=== PATIENT | female | born 1975 | race Caucasian/White ===

== ENCOUNTER 2018-03-19 22:07 | Emergency (ER) | payer BC ==
--- NOTE | 2018-03-19 22:47 | EDM.PDOC ---
ED HPI GENERAL MEDICAL PROBLEM - General Chief Complaint: Abdominal Pain Time Seen by Provider: 03/19/18 22:45 - History of Present Illness INITIAL COMMENTS - FREE TEXT/NARRATIVE: 42-year-old female presents emergency room with abdominal pain. This pain started roughly 3 days ago however really became quite severe sometime last night or very early this morning. It is right sided. Occasionally radiates into her right flank and across her lower abdomen. The patient does not have prior history of kidney stones she had a problematic ovarian cyst when she was on fertility medication and this in a way reminds her of that. Patient has not had any nausea or vomiting no diarrhea no constipation. She denies fevers or chills. 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 (see below) Other Treatments DEDICATED OWNER OPERATOR: tylenol at 1900 Lower Pelvic Pain Score (Numeric/FACES): 8 - Related Data Allergies Allergy/AdvReac Type Severity Reaction Status Date / Time codeine Allergy Nausea Verified 03/19/18 22:28 sertraline [From Zoloft] Allergy Other Verified 03/19/18 22:28 Home Meds: Home Meds FLUoxetine [PROzac] 20 mg PO DAILY 03/19/18 [History] buPROPion [Wellbutrin] 150 mg PO DAILY 03/19/18 [History] traZODone HCl [Trazodone HCl] 25 mg PO ASDIRECTED 03/19/18 [History] Past Medical History Gastrointestinal History: Reports: Celiac Disease 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 (See Below) 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 DESIGN 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 History: ovarian cyst surgery Psychiatric History: Reports: Anxiety, Depression - Past Surgical History HEENT Surgical History: Reports: Oral Surgery GI Surgical History: Reports: Appendectomy Female Surgical History: Reports: Other (See Below) 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 Denies: Constipation, Diarrhea , Nausea, Vomiting : Reports: No Symptoms Musculoskeletal: Reports: No Symptoms Skin: Reports: No Symptoms Neurological: Reports: No Symptoms ED EXAM, GI/ABD - Physical Exam Exam: See Below Exam Limited By: No Limitations General Appearance: Alert, No Apparent Distress Head: Atraumatic, Normocephalic Neck: Normal Inspection, Supple, Non-Tender, Full Range of Motion. No: Lymphadenopathy (L), Lymphadenopathy (R) Respiratory/Chest: No Respiratory Distress, Lungs Clear, Normal Breath Sounds Cardiovascular: Regular Rate, Rhythm, No Edema, No Murmur GI/Abdominal Exam: Normal Bowel Sounds, Soft, Other (Right-sided pain with palpation worsened to some degree with palpation no rigidity or rebound noted no guarding) Back Exam: CVA Tenderness (R) (Mild). No: CVA Tenderness (L) Course - Vital Signs Last Recorded V/S: Last Vital Signs Temp 37.4 C 03/19/18 22:33 Pulse 73 03/19/18 22:33 Resp 20 03/19/18 22:33 BP 119/74 03/19/18 22:33 Pulse Ox 98 03/19/18 22:33 - Orders/Labs/Meds Orders: Active Orders 24 hr Category Date Time Status Abdomen Pelvis wo Cont [CT] Stat Exams 03/20/18 01:05 Taken Lactated Ringers [Ringers, Lactated] 1,000 ml Med 03/19/18 23:15 Active IV ASDIRECTED Medication Orders Lactated Ringer's (Ringers, Lactated) 1,000 mls @ 125 mls/hr IV ASDIRECTED SRINIVAS Last Admin: 03/19/18 23:20 Dose: 125 mls/hr Labs: Laboratory Tests 03/19/18 03/19/18 03/19/18 Range/Units 22:50 22:50 23:15 WBC 8.35 (3.98-10.04) K/mm3 RBC 4.48 (3.98-5.22) M/mm3 Hgb 13.2 (11.2-15.7) gm/L Hct 38.6 (34.1-44.9) % MCV 86.2 (79.4-94.8) fl MCH 29.5 (25.6-32.2) pg MCHC 34.2 (32.2-35.5) g/dl RDW Std Deviation 41.2 (36.4-46.3) fL Plt Count 304 (182-369) K/mm3 MPV 9.8 (9.4-12.3) fl Neutrophils % (Manual) 74 H (40-60) % Band Neutrophils % 0 (0-10) % Lymphocytes % (Manual) 21 (20-40) % Atypical Lymphs % 1 % Monocytes % (Manual) 4 (2-10) % Eosinophils % (Manual) 0 L (0.7-5.8) % Basophils % (Manual) 0 L (0.1-1.2) Platelet Estimate Adequate Plt Morphology Comment Normal RBC Morph Comment Normal Sodium (136-145) mEq/L Potassium (3.5-5.1) mEq/L Chloride (98-107) mEq/L Carbon Dioxide (21-32) mEq/L Anion Gap (5-15) BUN (7-18) mg/dL Creatinine (0.55-1.02) mg/dL Est Cr Clr Drug Dosing mL/min Estimated GFR (MDRD) (>60) mL/min BUN/Creatinine Ratio (14-18) Glucose (74-106) mg/dL Calcium (8.5-10.1) mg/dL Total Bilirubin (0.2-1.0) mg/dL AST (15-37) U/L ALT (14-59) U/L Alkaline Phosphatase (46-116) U/L Total Protein (6.4-8.2) g/dl Albumin (3.4-5.0) g/dl Globulin gm/dL Albumin/Globulin Ratio (1-2) Urine Color Yellow (Yellow) Urine Appearance Clear (Clear) Urine pH 5.5 (5.0-8.0) Ur Specific [place] > or = 1.030 (1.005-1.030) Urine Protein Negative (Negative) Urine Glucose (UA) Negative (Negative) Urine Ketones 3+ H (Negative) Urine Occult Blood Trace-lysed H (Negative) Urine Nitrite Negative (Negative) Urine Bilirubin Negative (Negative) Urine Urobilinogen 0.2 (0.2-1.0) Ur Leukocyte Esterase Negative (Negative) Urine RBC 0-5 (0-5) /hpf Urine WBC 0-5 (0-5) /hpf Ur Epithelial Cells 0-5 (0-5) /hpf Urine Bacteria Rare (FEW) /hpf Urine Mucus Not seen (FEW) /hpf Urine HCG, Qual Negative (NEGATIVE) 03/19/18 Range/Units 23:15 WBC (3.98-10.04) K/mm3 RBC (3.98-5.22) M/mm3 Hgb (11.2-15.7) gm/L Hct (34.1-44.9) % MCV (79.4-94.8) fl MCH (25.6-32.2) pg MCHC (32.2-35.5) g/dl RDW Std Deviation (36.4-46.3) fL Plt Count (182-369) K/mm3 MPV (9.4-12.3) fl Neutrophils % (Manual) (40-60) % Band Neutrophils % (0-10) % Lymphocytes % (Manual) (20-40) % Atypical Lymphs % % Monocytes % (Manual) (2-10) % Eosinophils % (Manual) (0.7-5.8) % Basophils % (Manual) (0.1-1.2) Platelet Estimate Plt Morphology Comment RBC Morph Comment Sodium 137 (136-145) mEq/L Potassium 3.2 L (3.5-5.1) mEq/L Chloride 102 (98-107) mEq/L Carbon Dioxide 24 (21-32) mEq/L Anion Gap 14.2 (5-15) BUN 13 (7-18) mg/dL Creatinine 0.9 (0.55-1.02) mg/dL Est Cr Clr Drug Dosing 74.77 mL/min Estimated GFR (MDRD) > 60 (>60) mL/min BUN/Creatinine Ratio 14.4 (14-18) Glucose 90 (74-106) mg/dL Calcium 8.5 (8.5-10.1) mg/dL Total Bilirubin 0.3 (0.2-1.0) mg/dL AST 16 (15-37) U/L ALT 18 (14-59) U/L Alkaline Phosphatase 62 (46-116) U/L Total Protein 7.2 (6.4-8.2) g/dl Albumin 3.9 (3.4-5.0) g/dl Globulin 3.3 gm/dL Albumin/Globulin Ratio 1.2 (1-2) Urine Color (Yellow) Urine Appearance (Clear) Urine pH (5.0-8.0) Ur Specific [place] (1.005-1.030) Urine Protein (Negative) Urine Glucose (UA) (Negative) Urine Ketones (Negative) Urine Occult Blood (Negative) Urine Nitrite (Negative) Urine Bilirubin (Negative) Urine Urobilinogen (0.2-1.0) Ur Leukocyte Esterase (Negative) Urine RBC (0-5) /hpf Urine WBC (0-5) /hpf Ur Epithelial Cells (0-5) /hpf Urine Bacteria (FEW) /hpf Urine Mucus (FEW) /hpf Urine HCG, Qual (NEGATIVE) Meds: Medications Generic Name Dose Route Start Last Admin Trade Name Freq PRN Reason Stop Dose Admin Lactated Ringer's 1,000 mls @ 125 mls/hr 03/19/18 23:15 03/19/18 23:20 Ringers, Lactated IV 125 mls/hr ASDIRECTED SRINIVAS Administration Discontinued Medications Generic Name Dose Route Start Last Admin Trade Name Freq PRN Reason Stop Dose Admin Fentanyl 50 mcg 03/20/18 02:18 03/20/18 02:24 Sublimaze IVPUSH 03/20/18 02:19 50 mcg ONETIME ONE Administration - Re-Assessments/Exams Free Text/Narrative Re-Assessment/Exam: 03/20/18 01:07 Patient is doing a little better. Discussed the workup thus far which is basically unrevealing. Discussed the pros and cons of CAT scanning will proceed with a CAT scan at this point as kidney stone is high in the list of possibilities and the patient [place] out of town. 03/20/18 02:30 CT evaluation does not show a kidney stone she's got a fairly large right ovarian cyst 4.5 x 4 cm recommending pelvic ultrasound. At this point the patient will be discharged and will follow-up with the women's clinic here. Dr. Garza on-call will discharge with some hydrocodone. Departure - Departure Time of Disposition: 02:31 Disposition: Home, Self-Care 01 Clinical Impression: Unspecified ovarian cyst, right side - Discharge Information Referrals: Zainab Obrien PA-C [Primary Care Provider] - Cyrus Garza MD [Physician] - Forms: ED Department Discharge Additional Instructions: Return to emergency room with any questions problems or worsening symptoms. Follow-up at the women's clinic, Dr. Garza this next week. Use the hydrocodone as needed for the pain the Tylenol or Motrin will not treat. If taking the hydrocodone on a regular basis be sure and take a stool softener as this medication can cause constipation. Do not drive or returning to work within 12 hours of taking hydrocodone. - My Orders Last 24 Hours: My Active Orders 03/19/18 23:15 Lactated Ringers [Ringers, Lactated] 1,000 ml IV ASDIRECTED 03/20/18 01:05 Abdomen Pelvis wo Cont [CT] Stat - Assessment/Plan Last 24 Hours: My Active Orders 03/19/18 23:15 Lactated Ringers [Ringers, Lactated] 1,000 ml IV ASDIRECTED 03/20/18 01:05 Abdomen Pelvis wo Cont [CT] Stat
[2018-03-19] MEDS ORDERED: Lactated Ringers 1,000 ML IV SCH (23:15)
[2018-03-20] MEDS ORDERED: fentaNYL 100 MCG/2 ML SDV IVPUSH ONE (02:18)
--- NOTE | 2018-03-20 06:38 | CT ---
CT abdomen and pelvis Technique: Multiple axial sections were obtained from above the top of the diaphragm inferiorly through the pubic symphysis. Intravenous and oral contrast was not utilized. Study has been performed as a ureteral stone protocol. Comparison: No prior abdominal imaging. Findings: Visualized lung bases show nothing acute. Noncontrast appearance of the liver and spleen appears within normal limits. Adrenal glands show no nodule. Pancreas shows no discrete abnormality. Gallbladder contains no calcified gallstones. Previous appendectomy appears to be present. Aorta shows no aneurysm. No retroperitoneal adenopathy or mesenteric abnormalities are seen. 4.3 cm cystic region is seen within the right ovary. No other pelvic abnormality is seen. No free fluid or inflammatory change is seen. Mild increased stool is seen throughout the colon. Kidneys show no abnormal calcifications. No ureteral dilatation or ureteral stone is seen. Impression: 1. Cystic change within the right ovary measuring up to 4.3 cm. This is likely incidental but pelvic ultrasound could be obtained to confirm. 2. Slight increased stool is noted throughout the colon. 3. No renal calculi, ureteral dilatation or ureteral stone is seen. Diagnostic code #3 I agree with preliminary report from [facility], finalized on 03/20/18, 3:23 AM Central Time
== END 2018-03-20 02:41 | disposition home or self-care (01) ==
LOC: JD.ED 22:07
DX: N83.201 Unspecified ovarian cyst, right side (principal); Z90.49 Acquired absence of other specified parts of digestive tract; Z88.5 Allergy status to narcotic agent; Z88.8 Allergy status to other drugs, medicaments and biological substances; Z79.899 Other long term (current) drug therapy
CPT/HCPCS: 36415; 74176; 80053; 81001; 81025; 85007; 85027; 96361; 96374; 99284; J3010; J7120; 99283

== ENCOUNTER 2018-07-13 12:18 | Emergency (ER) | payer BC ==
[2018-07-13] MEDS ORDERED: Sodium Chloride 0.9% 1,000 ML IV ONE (13:29)
[2018-07-13] MEDS ORDERED: Ketorolac 30 MG/ML SDV IVPUSH ONE (13:31)
--- NOTE | 2018-07-13 13:51 | EDM.PDOC ---
ED HPI GENERAL MEDICAL PROBLEM - General Chief Complaint: Neurological Problem Stated Complaint: WEAKNESS/PIAN IN LIMBS Time Seen by Provider: 07/13/18 12:39 Source of Information: Reports: Patient History Limitations: Reports: No Limitations - History of Present Illness INITIAL COMMENTS - FREE TEXT/NARRATIVE: 42 yo F comes in today with for complaints of acute on chronic whole body weakness, burning/tingling and left leg "heaviness" and numbness. She states she was standing [place] [employer] today when all of a sudden she felt a "wave of heaviness and burning/tingling" in her entire body, castro the left leg. She also has some tingling to the face and fingers. She also c/o TAYLOR that "wraps around my head", 7/10 pain. She does have a h/o of migraines, but states this is not one as she had no aura, vomiting, or sensitivity to light like she normally would. She also c/o some neck pressure and pain, but this is mostly chronic as she was bucked off a horse at 17 yo. She was recently started on Gabapentin on Tuesday and is afraid these might be side effects. However, the Gabapentin has been helping with her "sharp shooting pain down my legs". At this point, she is just feeling upset because "I feel like I'm not in my own body". She does have h/o of being on Trazodone, Wellbutrin and Prozac. Her uncle does have a h/o MS with similar symptoms, but she had an MRI done last week that was normal. She has an appointment with a neurologist in [place] mid August. She will be seeing a "general practitioner in [place]" tomorrow. PCP is Mary Carter NP. 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 Denies: Fever, Chills, Decreased Appetite HEENT: Reports: Glasses Respiratory: Reports: No Symptoms Cardiovascular: Reports: No Symptoms. Denies: Chest Pain, Dyspnea on Exertion, Palpitations Endocrine: Reports: No Symptoms GI/Abdominal: Reports: Nausea (earlier today, has now subsided). Denies: Abdominal Pain, Diarrhea, Vomiting : Reports: No Symptoms Skin: Reports: No Symptoms Neurological: Reports: Headache (09/20, "wraps around head"), Numbness (face, hands, legs L>R), Tingling (face, hands, legs L>R), Weakness (L leg). Denies: Confusion, Dizziness, Seizure, Trouble Speaking, Change in Speech Psychiatric: Reports: Anxiety Hematologic/Lymphatic: Reports: No Symptoms Immunologic: Reports: No Symptoms ED EXAM, NEURO - Physical Exam Exam: See Below Exam Limited By: No Limitations General Appearance: Alert, WD/WN, Anxious Eye Exam: Left Eye: Nystagmus (very mild), Bilateral Eye: EOMI, PERRL Ears: Normal External Exam, Hearing Grossly Normal Nose: Normal Inspection, Normal Mucosa, No Blood Throat/Mouth: Normal Inspection, Normal Lips, Normal Teeth, Normal Gums, Normal Oropharynx, Normal Voice, No Airway Compromise Head Exam: Atraumatic, Normocephalic Neck: Normal Inspection, Supple, Non-Tender, Full Range of Motion Respiratory/Chest: No Respiratory Distress, Lungs Clear, Normal Breath Sounds, No Accessory Muscle Use, Chest Non-Tender Cardiovascular: Normal Peripheral Pulses, Regular Rate, Rhythm, No Edema, No Gallop, No JVD, No Murmur, No Rub GI/Abdominal: Normal Bowel Sounds, Soft, Non-Tender, No Organomegaly, No Distention, No Abnormal Bruit, No Mass Neurological: Alert, CN II-XII Intact, No Motor/Sensory Deficits, Oriented x 3 Back Exam: Normal Inspection. No: Paraspinal Tenderness, Vertebral Tenderness Extremities: Normal Inspection, Normal Range of Motion, Non-Tender, No Pedal Edema, Normal Capillary Refill Psychiatric: Anxious Skin Exam: Warm, Dry, Intact, Normal Color, No Rash Course - Vital Signs Last Recorded V/S: Last Vital Signs Temp 99.0 F 07/13/18 12:29 Pulse 81 07/13/18 12:29 Resp 20 07/13/18 12:29 BP 126/83 07/13/18 12:29 Pulse Ox 99 07/13/18 12:29 - Orders/Labs/Meds Labs: Laboratory Tests 07/13/18 07/13/18 07/13/18 Range/Units 13:45 13:45 13:45 WBC 6.58 (3.98-10.04) K/mm3 RBC 4.72 (3.98-5.22) M/mm3 Hgb 13.9 (11.2-15.7) gm/L Hct 41.3 (34.1-44.9) % MCV 87.5 (79.4-94.8) fl MCH 29.4 (25.6-32.2) pg MCHC 33.7 (32.2-35.5) g/dl RDW Std Deviation 41.6 (36.4-46.3) fL Plt Count 323 (182-369) K/mm3 MPV 9.9 (9.4-12.3) fl Neut % (Auto) 71.7 H (34.0-71.1) % Lymph % (Auto) 15.8 L (19.3-51.7) % [place] % (Auto) 10.0 (4.7-12.5) % Eos % (Auto) 1.1 (0.7-5.8) Baso % (Auto) 0.9 (0.1-1.2) % Neut # (Auto) 4.72 (1.56-6.13) K/mm3 Lymph # (Auto) 1.04 L (1.18-3.74) K/mm3 [place] # (Auto) 0.66 H (0.24-0.36) K/mm3 Eos # (Auto) 0.07 (0.04-0.36) K/mm3 Baso # (Auto) 0.06 (0.01-0.08) K/mm3 Sodium 139 (136-145) mEq/L Potassium 3.6 (3.5-5.1) mEq/L Chloride 105 (98-107) mEq/L Carbon Dioxide 24 (21-32) mEq/L Anion Gap 13.6 (5-15) BUN 5 L (7-18) mg/dL Creatinine 1.1 H (0.55-1.02) mg/dL Est Cr Clr Drug Dosing 61.17 mL/min Estimated GFR (MDRD) 55 (>60) mL/min BUN/Creatinine Ratio 4.5 L (14-18) Glucose 130 H (74-106) mg/dL Calcium 8.7 (8.5-10.1) mg/dL Magnesium 2.2 (1.8-2.4) mg/dl Total Bilirubin 0.2 (0.2-1.0) mg/dL AST 16 (15-37) U/L ALT 22 (14-59) U/L Alkaline Phosphatase 66 (46-116) U/L Total Protein 7.2 (6.4-8.2) g/dl Albumin 3.5 (3.4-5.0) g/dl Globulin 3.7 gm/dL Albumin/Globulin Ratio 1.0 (1-2) Meds: Medications Discontinued Medications Generic Name Dose Route Start Last Admin Trade Name Freq PRN Reason Stop Dose Admin Sodium Chloride 1,000 mls @ 999 mls/hr 07/13/18 13:29 07/13/18 13:42 Normal Saline IV 07/13/18 14:29 999 mls/hr ONETIME ONE Administration Ketorolac Tromethamine 30 mg 07/13/18 13:31 07/13/18 13:43 Toradol IVPUSH 07/13/18 13:32 30 mg ONETIME ONE Administration Lorazepam 0.5 mg 07/13/18 15:06 07/13/18 15:23 Ativan IVPUSH 07/13/18 15:07 0.5 mg ONETIME ONE Administration - Re-Assessments/Exams Free Text/Narrative Re-Assessment/Exam: 07/13/18 13:30 Ordered CBC, CMP, Mag to check for electrolyte abnormalities possibly 2/2 Gabapentin Toradol and 1L IV NS bolus for TAYLOR 07/13/18 15:07 Labs are back. CBC, CMP, Mag all WNL. Pt is feeling much better and TAYLOR is gone after the IVF and Toradol. We discussed how anxiety may contribute to these symptoms, and so she would like to try Ativan. If it helps, I will send home with Xanax. Her will be driving her home. Recommend f/u with neurology, as these symptoms are likely more of a chronic issue. Emergency has been ruled out today. 07/13/18 15:44 Pt is feeling less worried after the Ativan, but symptoms have no resolved. At this time, she does not want a prescription for Xanax as "it hasn't worked for me in the past". She is stable to go home. Departure - Departure Time of Disposition: 15:44 Disposition: Home, Self-Care 01 Condition: Good Clinical Impression: Tension headache, Generalized weakness, Numbness and tingling of left upper and lower extremity - Discharge Information *PRESCRIPTION DRUG MONITORING PROGRAM REVIEWED*: Not Applicable *COPY OF PRESCRIPTION DRUG MONITORING REPORT IN PATIENT JUHI: Not Applicable Instructions: Weakness, [id number], Tension Headache, Adult, [id number], Paresthesia, [id number] Referrals: Mary Carter ANNEALING FURNACE TENDER [Primary Care Provider] - Forms: ED Department Discharge Additional Instructions: You were seen in the ED today for new onset weakness, numbness/tingling and headache. Your headache was treated with IV fluids and a strong anti- inflammatory with improvement. Your workup here was negative for any infection or electrolyte abnormality. You were also given Ativan to see if it would help with anxiety which can also be a cause of these symptoms. No Xanax will be prescribed as you stated it hasn't worked for you in the past. You recently had an MRI to rule out multiple sclerosis. At this time, no further workup is necessary as an emergency has been ruled out. Recommend follow up with neurologist at your appointment in August. Please return to ED if new or worsening symptoms.
[2018-07-13] MEDS ORDERED: LORazepam 2 MG/ML SDV IVPUSH ONE (15:06)
== END 2018-07-13 15:57 | disposition home or self-care (01) ==
LOC: JD.ED 12:18
DX: G44.209 Tension-type headache, unspecified, not intractable (principal); R53.1 Weakness; R20.2 Paresthesia of skin; F41.9 Anxiety disorder, unspecified; F32.9 Major depressive disorder, single episode, unspecified; Z79.899 Other long term (current) drug therapy; Z88.5 Allergy status to narcotic agent; Z88.8 Allergy status to other drugs, medicaments and biological substances
CPT/HCPCS: 36415; 80053; 83735; 85025; 96361; 96374; 96375; 99284; J1885; J2060; J7040

== ENCOUNTER 2019-11-17 14:56 | Emergency (ER) | payer BC ==
[2019-11-17] MEDS ORDERED: Acetaminophen 325 MG Tab PO ONE (16:15)
--- NOTE | 2019-11-17 16:24 | EDM.PDOC ---
ED HPI GENERAL MEDICAL PROBLEM - General Chief Complaint: Lower Extremity Injury/Pain Stated Complaint: LT FOOT INJURY Time Seen by Provider: 11/17/19 15:11 Source of Information: Reports: Patient History Limitations: Reports: No Limitations - History of Present Illness INITIAL COMMENTS - FREE TEXT/NARRATIVE: Patient is a 44-year-old female male presenting to the emergency department with complaints of left foot pain. She states she was running and stepped in a hole. She rolled her ankle, however denies any significant pain to the ankle. She complains of pain to the medial first metatarsal. States it is painful to ambulate. Denies any previous injury to this extremity. 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 ED EXAM, GENERAL - Physical Exam Exam: See Below Exam Limited By: No Limitations General Appearance: Alert, WD/WN, No Apparent Distress Respiratory/Chest: No Respiratory Distress, Lungs Clear, Normal Breath Sounds, No Accessory Muscle Use, Chest Non-Tender Cardiovascular: Normal Peripheral Pulses, Regular Rate, Rhythm, No Edema, No Gallop, No JVD, No Murmur, No Rub Extremities: Other (Mild swelling to the medial aspect of the left first metatarsal. No obvious deformity. No visible ecchymosis. CMS intact distal to the injury.) Neurological: Alert, Oriented, CN II-XII Intact, Normal Cognition, Normal Gait, Normal Reflexes, No Motor/Sensory Deficits Psychiatric: Normal Affect, Normal Mood Course - Vital Signs Last Recorded V/S: Last Vital Signs Temp 97.1 F 11/17/19 15:02 Pulse 99 11/17/19 15:02 Resp 16 11/17/19 15:02 BP 134/92 H 11/17/19 15:02 Pulse Ox 95 11/17/19 15:02 - Orders/Labs/Meds Orders: Active Orders 24 hr Category Date Time Status Ankle Min 3V Lt [CR] Stat Exams 11/17/19 15:25 Taken Foot Comp Min 3V Lt [CR] Stat Exams 11/17/19 15:25 Taken Meds: Medications Discontinued Medications Generic Name Dose Route Start Last Admin Trade Name Gia PRN Reason Stop Dose Admin Acetaminophen 975 mg 11/17/19 16:15 Tylenol PO 11/17/19 16:16 NOW ONE - Re-Assessments/Exams Free Text/Narrative Re-Assessment/Exam: 11/17/19 16:21 X-rays of the left foot showed no bony abnormalities. Discussed with patient that she likely strained her foot. Rex wrap has been applied. Will give her a dose of Tylenol prior to discharge. She will be provided with crutches to use as needed for the next couple days until the pain improves. Discharge instructions as documented. Departure - Departure Time of Disposition: 16:21 Disposition: Home, Self-Care 01 Condition: Good Clinical Impression: Sprain of foot, left Qualifiers: Encounter type: initial encounter Qualified Code(s): S93.602A - Unspecified sprain of left foot, initial encounter - Discharge Information *PRESCRIPTION DRUG MONITORING PROGRAM REVIEWED*: No *COPY OF PRESCRIPTION DRUG MONITORING REPORT IN PATIENT JUHI: No Instructions: Foot Sprain Referrals: Zainab Obrien PA-C [Primary Care Provider] - Additional Instructions: You were seen in the emergency department today for pain to your left foot after stepping in a hole. X-rays were completed and showed no fractures. It is likely that you sprained your left foot. An Rex wrap has been applied for comfort. You been provided with crutches that you may use over the next few days as needed until pain improves. Recommend that you ice and elevate the extremity over the next few days. You may use [id number] Tylenol and ibuprofen as needed for pain. If you are still experiencing significant pain after 1 to 2 weeks, recommend that you follow-up in the clinic. Return to the ER as needed. Sepsis Event Note (ED) - Evaluation Sepsis Screening Result: No Definite Risk - Focused Exam Vital Signs: Vital Signs Temp Pulse Resp BP Pulse Ox 11/17/19 15:02 97.1 F 99 16 134/92 H 95 - My Orders Last 24 Hours: My Active Orders 11/17/19 15:25 Ankle Min 3V Lt [CR] Stat Foot Comp Min 3V Lt [CR] Stat - Assessment/Plan Last 24 Hours: My Active Orders 11/17/19 15:25 Ankle Min 3V Lt [CR] Stat Foot Comp Min 3V Lt [CR] Stat
--- NOTE | 2019-11-19 11:03 | CR ---
Left ankle: 4 views of the left ankle were obtained. Comparison: No prior ankle exam is available. Small plantar spur is seen. Minimal calcification is seen within the distal Achilles tendon at the attachment to the posterior calcaneus. Ankle mortise is symmetric. No acute fracture or other bony abnormality is appreciated. Impression: 1. Findings as noted above. 2. Nothing acute is appreciated on left ankle exam. Diagnostic code #2 This report was dictated in MDT
--- NOTE | 2019-11-19 11:03 | CR ---
Left foot: 4 views left foot were obtained. Comparison: No prior foot exam. Study correlated with ankle exam performed on the same day. Calcaneal spur and distal Achilles calcification as described on ankle exam is seen on this study. Joint spaces within the left foot are preserved. No acute fracture or other bony abnormality is appreciated. Impression: 1. Calcaneal findings as noted on ankle exam. 2. Nothing acute seen on left foot study. Diagnostic code #2 This report was dictated in MDT
== END 2019-11-17 16:35 | disposition home or self-care (01) ==
LOC: JD.ED 14:56
DX: S93.602A Unspecified sprain of left foot, initial encounter (principal); F41.9 Anxiety disorder, unspecified; F32.9 Major depressive disorder, single episode, unspecified; Z88.5 Allergy status to narcotic agent; Z88.8 Allergy status to other drugs, medicaments and biological substances; Z79.899 Other long term (current) drug therapy; X50.9XXA Other and unspecified overexertion or strenuous movements or postures, initial encounter; Y93.02 Activity, running
CPT/HCPCS: 73610; 73630; 99283; A9270; 99282

== ENCOUNTER 2020-11-04 07:53 | Day surgery (SDC) | payer BC ==
[~2020-11-04 07:53] MED LIST: Lactated Ringers 1,000 ML IV SCH; Lidocaine 1% 4 ML ONE; Lidocaine 1%/Sod Bicarbonate in NS 8.4% 1 ML Syringe IDERM PRN; Midazolam 1 MG/ML 2 ML SDV ONE; Ondansetron 4 MG/2 ML SDV ONE; Propofol 200 MG/20 ML SDV ONE; Rocuronium 50 MG/5 ML Vial ONE; Sodium Chloride 0.9% 10 ML Syringe FLUSH PRN; fentaNYL 250 MCG/5 ML SDV ONE
[2020-11-04] MEDS ORDERED: ceFAZolin 1 GM Vial ONE (08:00)
[2020-11-04] MEDS ORDERED: Scopolamine 1.5 MG Transdermal Patch TRDERM PRN (08:30)
--- NOTE | 2020-11-04 08:32 | PCM.PREANE ---
Preanesthetic Assessment - Procedure Proposed Procedure: laparoscopic cholecystectomy - Anesthesia/Transfusion/Family Hx Anesthesia History: Prior Anesthesia Reaction (PONV) Family History of Anesthesia Reaction: No Transfusion History: No Prior Transfusion(s) - Review of Systems General: Other (arthritis) Pulmonary: No Symptoms Cardiovascular: No Symptoms Gastrointestinal: No Symptoms Neurological: Numbness ("due to bulging disc in neck from horse accident"), Gait Disturbance (walk with walking stick) Other: Reports: Neck Pain (and stiff) - Physical Assessment NPO Status Date: 11/03/20 NPO Status Time: 00:00 Height: 1.65 m Weight: 62.7 kg ASA Class: 3 Mental Status: Alert & Oriented x3 Airway Class: Mallampati = 3 Dentition: Reports: Normal Dentition, Implants (front two top ) Thyro-Mental Finger Breadths: 3 Mouth Opening Finger Breadths: 2 ROM/Head Extension: Limited/Partial Lungs: Clear to Auscultation, Normal Respiratory Effort Cardiovascular: Regular Rate, Regular Rhythm - Allergies Allergies/Adverse Reactions: Allergies Allergy/AdvReac Type Severity Reaction Status Date / Time amoxicillin [From Augmentin] Allergy Cannot Verified 11/03/20 16:44 Remember clavulanic acid Allergy Cannot Verified 11/03/20 16:44 [From Augmentin] Remember codeine Allergy Nausea Verified 11/03/20 16:44 sertraline [From Zoloft] Allergy Other Verified 11/03/20 16:44 - Blood Product(s) Available: None - Anesthesia Plan Pre-Op Medication Ordered: None - Acknowledgements Anesthesia Type Planned: General Anesthesia Pt an Appropriate Candidate for the Planned Anesthesia: Yes Alternatives and Risks of Anesthesia Discussed w Pt/Guardian: Yes Pt/Guardian Understands and Agrees with Anesthesia Plan: Yes PreAnesthesia Questionnaire HEENT History: Reports: Other (See Below) Other HEENT History: conjunctivitis Cardiovascular History: Reports: None Respiratory History: Reports: Other (See Below) Other Respiratory History: pneumonia, URI Gastrointestinal History: Reports: Celiac Disease, Other (See Below) Other Gastrointestinal History: abdominal pain, cholelithiasis, nausea, vomiting Genitourinary History: Reports: None 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) Other OB/BYN History: ovarian cyst surgery, dysmenorrhea, pelvic pain, yeast vaginitis Musculoskeletal History: Reports: Other (See Below) Other Musculoskeletal History: muscle spasms, foot cramps, psoriatic arthritis, toe pain, hand arthralgia Neurological History: Reports: Migraines, Other (See Below) Other Neuro History: neuropathy to all extremities, balance disorder Psychiatric History: Reports: Anxiety, Depression, Other (See Below) Other Psychiatric History: aspergers, insomnia, fatigue Endocrine/Metabolic History: Reports: Other (See Below) Other Endocrine/Metabolic History: acute thyroiditis Hematologic History: Reports: Other (See Below) Other Hematologic History: hypokalemia Immunologic History: Reports: None Oncologic (Cancer) History: Reports: None Dermatologic History: Reports: Psoriasis, Other (See Below) Other Dermatologic History: acne, dermatitis, rash - Infectious Disease History Infectious Disease History: Reports: Novel Coronavirus - Past Surgical History Head Surgeries/Procedures: Reports: None HEENT Surgical History: Reports: Oral Surgery Cardiovascular Surgical History: Reports: None Respiratory Surgical History: Reports: None GI Surgical History: Reports: Appendectomy Female Surgical History: Reports: Other (See Below) Other Female Surgeries/Procedures: infertility Endocrine Surgical History: Reports: None Neurological Surgical History: Reports: None Musculoskeletal Surgical History: Reports: None Oncologic Surgical History: Reports: None - SUBSTANCE USE Tobacco Use Status *Q: Never Tobacco User Tobacco Use Within Last Twelve Months: No Second Hand Smoke Exposure: Yes Days Per Week of Alcohol Use: 4 Number of Drinks Per Day: 2 Total Drinks Per Week: 8 Recreational Drug Use History: Yes Recreational Drug Type: Reports: Marijuana/Hashish - HOME MEDS Home Medications: Home Meds Apremilast [Otezla] 30 mg PO BID 11/03/20 [History] Cyclobenzaprine [Flexeril] 10 mg PO TID PRN 11/03/20 [History] Lisdexamfetamine [Vyvanse] 30 mg PO BID 11/03/20 [History] Mirtazapine 7.5 mg PO BEDTIME 11/03/20 [History] buPROPion HCL [Wellbutrin Xl] 300 mg PO DAILY 11/03/20 [History] - CURRENT (IN HOUSE) MEDS Current Meds: Current Medications Lactated Ringer's (Ringers, Lactated) 1,000 mls @ 125 mls/hr IV ASDIRECTED SRINIVAS Stop: 11/04/20 23:00 Lidocaine/Sodium Bicarbonate (Lidocaine 1%/Sod Bicarbonate In Ns 8.4% 1 Ml Syringe) 0.25 ml IDERM ONETIME PRN PRN Reason: Prior to IV Start Stop: 11/04/20 18:00 Sodium Chloride (Sodium Chloride 0.9% 10 Ml Syringe) 10 ml FLUSH ASDIRECTED PRN PRN Reason: Keep Vein Open Stop: 11/04/20 18:00 Discontinued Medications Cefazolin Sodium (Cefazolin 1 Gm Vial) Confirm Administered Dose 2 gm .ROUTE .STK-MED ONE Stop: 11/04/20 08:01 Fentanyl (Fentanyl 250 Mcg/5 Ml Sdv) Confirm Administered Dose 250 mcg .ROUTE .STK-MED ONE Stop: 11/04/20 07:48 Lidocaine HCl (Xylocaine-Mpf 1%) Confirm Administered Dose 4 mls @ as directed .ROUTE .STK-MED ONE Stop: 11/04/20 07:49 Midazolam HCl (Midazolam 1 Mg/Ml 2 Ml Sdv) Confirm Administered Dose 2 mg .ROUTE .STK-MED ONE Stop: 11/04/20 07:48 Ondansetron HCl (Ondansetron 4 Mg/2 Ml Sdv) Confirm Administered Dose 4 mg .ROUTE .STK-MED ONE Stop: 11/04/20 07:48 Propofol (Propofol 200 Mg/20 Ml Sdv) Confirm Administered Dose 200 mg .ROUTE .STK-MED ONE Stop: 11/04/20 07:48 Rocuronium [place] (Rocuronium 50 Mg/5 Ml Vial) Confirm Administered Dose 50 mg .ROUTE .STK-MED ONE Stop: 11/04/20 07:48
[2020-11-04] MEDS ORDERED: Bupivacaine 0.5%/EPINEPHrine 1:200,000 50 ML MDV ONE (08:37)
[2020-11-04] MEDS ORDERED: Propofol 200 MG/20 ML SDV ONE ×4 (09:12→09:41)
[2020-11-04] MEDS ORDERED: fentaNYL 250 MCG/5 ML SDV ONE (09:44)
[2020-11-04] MEDS ORDERED: Lactated Ringers 1,000 ML ONE (09:45)
[2020-11-04] MEDS ORDERED: Labetalol 100 MG/20 ML MDV ONE (09:52)
[2020-11-04] MEDS ORDERED: Dexamethasone 4 MG/ML 5 ML MDV ONE (09:56)
--- NOTE | 2020-11-04 10:24 | PCM.PRNOTE ---
- Free Text/Narrative Note: Date: 11/04/2020 Operation: laparoscopic cholecystectomy Indication: symptomatic cholelithiasis Surgeon: Micky Ernst MD Antibiotic: 2 g ancef IV EBL: 5 cc DVT ppx: SCDs Findings: omental adhesions to gallbladder. Critical view of safety obtained. Flaccid gallbladder with thickened visceral peritoneum. Detailed Report: The patient was taken to the operating room placed on the table in supine position. Timeout was performed and general endotracheal anesthesia was initiated. The abdomen was prepped and draped in usual sterile fashion. A Veress needle was placed at the left upper quadrant to establish pneumoperitoneum. Once pressure reached 15 mmHg, air was aspirated with a needle and syringe just inferior to the umbilicus. A 5 mm bladed trocar was inserted at this site and a 5 mm 30 degree laparoscope was inserted into the abdomen. There was no apparent injury from Veress needle placement and the needle was removed. Additional 5 mm ports were placed at the right upper quadrant, one for the assistant toddler teacher and 1 for the surgeon's left hand. The gallbladder fundus was grasped and retracted cephalad. A 12 mm bladed trocar was inserted at the subxiphoid area. There were omental adhesions to the anterior abdominal wall in the right upper quadrant. These were dissected off the gallbladder using hook monopolar energy. The infundibulum of the gallbladder was grasped and retracted laterally, and cystic structures were dissected. A critical view of safety was obtained. Hemolock clips were placed on the cystic duct, 2 on the stay side and one on the specimen side and the duct was transected with laparoscopic abbie. The cystic artery was then clipped and cut. The gallbladder was then completely removed from the liver with no spillage of bile. The gallbladder was placed in an Endo Catch and removed through the subxiphoid site. The dissection field appeared clean and dry. The larger port site was closed at the level of fascia with 0 Vicryl using a laparoscopic suture passer. A total of 30 cc 0.5% Marcaine with epinephrine was used for local anesthetic at incision sites, and TAP block was administered. The right upper quadrant ports were removed under laparoscopic visualization and no bleeding was noted. Pneumoperitoneum was released and the final port removed. All skin incisions were closed with running subcuticular Vicryl suture and dressed with Dermabond. The patient tolerated the procedure well.
[2020-11-04] MEDS ORDERED: Ketorolac 30 MG/ML SDV IVPUSH PRN (10:45)
[2020-11-04] MEDS ORDERED: Promethazine 12.5 MG in Sodium Chloride 0.9% 50 ML IV PRN (10:45)
--- NOTE | 2020-11-04 10:46 | PCM.POSTAN ---
POST ANESTHESIA ASSESSMENT - MENTAL STATUS Mental Status: Alert, Oriented - VITAL SIGNS Vital Signs: Last Vital Signs Temp 36.7 C 11/04/20 08:05 Pulse 81 11/04/20 08:05 Resp 16 11/04/20 08:05 BP 112/67 11/04/20 08:05 Pulse Ox 100 11/04/20 08:05 - RESPIRATORY Respiratory Status: Respiratory Rate WNL, Airway Patent, O2 Saturation Stable, Supplemental Oxygen - CARDIOVASCULAR CV Status: Pulse Rate WNL, Blood Pressure Stable - GASTROINTESTINAL GI Status: No Symptoms - PAIN Pain Score: 0 - POST OP HYDRATION Hydration Status: Adequate & Stable - OBSERVATIONS Free Text/Narrative:: no anesthesia complications noted
--- NOTE | 2020-11-04 12:12 | PCM48HPAN ---
Post Anesthesia Note - EVALUATION WITHIN 48HRS OF ANESTHETIC Vital Signs in Normal Range: Yes Patient Participated in Evaluation: Yes Respiratory Function Stable: Yes Airway Patent: Yes Cardiovascular Function Stable: Yes Hydration Status Stable: Yes Pain Control Satisfactory: Yes Nausea and Vomiting Control Satisfactory: Yes Mental Status Recovered: Yes Vital Signs: Last Vital Signs Temp 36.6 C 11/04/20 11:40 Pulse 68 11/04/20 11:15 Resp 16 11/04/20 11:40 BP 138/87 11/04/20 11:40 Pulse Ox 98 11/04/20 11:40 - COMMENTS/OBSERVATIONS Free Text/Narrative:: no anesthesia complications noted
== END 2020-11-04 12:26 | disposition home or self-care (01) ==
LOC: JD.SDS 07:53
PROVIDERS: ATTEND Surgery
DX: K80.10 Calculus of gallbladder with chronic cholecystitis without obstruction (principal); Z86.16 Personal history of COVID-19; Z88.6 Allergy status to analgesic agent; Z88.8 Allergy status to other drugs, medicaments and biological substances
CPT/HCPCS: 47562; A9270; J0690; J1100; J2250; J2405; J2704; J3010; J3490; J7120; 00790

== ENCOUNTER 2023-12-05 09:30 | Emergency (ER) | payer MEDICARE ==
[2023-12-05 10:47] LABS: BASOPHILS ABSOLUTE AUTO 0.1 K/mm3 (0.0-0.2); BASOPHILS PERCENT AUTO 0.5 % (0.0-1.0); EOSINOPHILS ABSOLUTE AUTO 0.1 K/mm3 (0.0-0.4); EOSINOPHILS PERCENT AUTO 1.4 % (0.0-6.0); HEMATOCRIT 39.4 % (37.0-47.0); HEMOGLOBIN 13.3 gm/dl (12.0-16.0); IMMATURE GRAN ABSOLUTE AUTO 0.04 K/mm3 (0.00-0.05); IMMATURE GRAN PERCENT AUTO 0.4 % (0.0-0.4); LYMPHOCYTES ABSOLUTE AUTO 1.6 K/mm3 (1.0-4.8); LYMPHOCYTES PERCENT AUTO 16.3 % (24.0-44.0); MEAN CORPUSCULAR HEMOGLOBIN 28.7 pg (28.0-32.0); MEAN CORPUSCULAR HGB CONC 33.8 g/dl (32.0-36.0); MEAN PLATELET VOLUME 9.3 fl (9.4-12.3); MONOCYTES ABSOLUTE AUTO 0.7 K/mm3 (0.0-0.8); MONOCYTES PERCENT AUTO 7.8 % (0.0-8.0); NEUTROPHILS PERCENT AUTO 73.6 % (41.0-71.0); PLATELET COUNT,PLT 342 K/mm3 (150-400); RED BLOOD CELL COUNT 4.64 M/mm3 (4.10-5.30); WHITE BLOOD CELL COUNT,WBC 9.51 K/mm3 (3.9-11.3)
[2023-12-05] MEDS: diphenhydrAMINE 50 MG/ML SDV IVPUSH ONE (10:47)
[2023-12-05 10:48] LABS: MEAN CORPUSCULAR VOLUME 84.9 fl (83.0-99.0)
[2023-12-05] MEDS: Sodium Chloride 0.9% 10 ML Syringe FLUSH PRN ×2 (10:49→12:10)
[2023-12-05 11:01] LABS: ALBUMIN 3.5 g/dl (3.4-5.0); ANION GAP 12.5 (5-15); BILIRUBIN TOTAL 0.2 mg/dL (0.2-1.0); CALCIUM 8.6 mg/dL (8.5-10.1); EST CRCL DRUG DOSING (CG) 63.25 mL/min; INR 0.97; POTASSIUM,K 3.5 mEq/L (3.5-5.1); PROTEIN TOTAL,TP 7.2 g/dl (6.4-8.2); PROTHROMBIN TIME 10.3 SECONDS (9.7-12.0)
[2023-12-05 11:08] LABS: D-DIMER QUANTITATIVE 1.5 mg/L (0.19-0.50)
[2023-12-05] MEDS: Sodium Chloride 0.9% 100 ML IV SCH (12:09)
[2023-12-05] MEDS: Iopamidol 755 Mg/ML 100 ML Bottle IVPUSH ONE (12:09)
== END 2023-12-05 14:31 | disposition home or self-care (01) ==
LOC: JD.ED 09:30
DX: L03.114 Cellulitis of left upper limb (principal); L03.115 Cellulitis of right lower limb; Z86.16 Personal history of COVID-19; Z90.49 Acquired absence of other specified parts of digestive tract; Z79.899 Other long term (current) drug therapy; Z79.891 Long term (current) use of opiate analgesic; Z88.0 Allergy status to penicillin; Z88.5 Allergy status to narcotic agent; Z88.8 Allergy status to other drugs, medicaments and biological substances
CPT/HCPCS: 36415; 71045; 71275; 80053; 85025; 85379; 85610; 87040; 93971; 94762; 96374; 99284; J1200; J3490; Q9967